=== PATIENT | male | born 1995 | race African-American/Black ===

== ENCOUNTER 2020-05-26 06:32 | Emergency (ER) | payer OTHER, SELFPAY ==
--- NOTE | ~2020-05-26 | XR_ITS ---
EXAMINATION: XR wrist RT min 3V DATE: 05/26/2020 07:12 INDICATION: Radial sided right wrist pain and limited range of motion TECHNIQUE: Posteroanterior, ulnar deviation, oblique, and lateral views of the right wrist were obtai leonides. COMPARISON: 12/02/2018 FINDINGS: Alignment is normal. No fracture. Joint spaces are normal. Mild soft tissue swelling along the ulnar side of the distal forearm. IMPRESSION: 1. No osseous abnormality. Reviewed, dictated and finalized at location A. IMPRESSION: 1. No osseous abnormality.
[2020-05-26 06:37] VITALS: BP 146/96; PULSE 105; RESP 18; TEMP 36.6; O2SAT 100
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
[2020-05-26] MEDS: KETOROLAC (*BKC) 60 MG/2 ML VIAL IM (09:17)
== END 2020-05-26 09:41 | disposition home or self-care (01) ==
PROVIDERS: Emergency Provider Emergency Medicine
DX: S63.501A Unspecified sprain of right wrist, initial encounter (principal); S66.911A Strain of unspecified muscle, fascia and tendon at wrist and hand level, right hand, initial encounter; Y35.813A Legal intervention involving manhandling, suspect injured, initial encounter
CPT/HCPCS: 73110; 96372; 99283; J1885